=== PATIENT | female | born 1960 | race Caucasian/White ===

== ENCOUNTER 2017-08-13 04:50 | Day surgery (SDC) | payer OTHER ==
[~2017-08-13 04:50] MED LIST: KOMBIGLYZE XR1 EAC2 PO; VASOTEC10 MG PO; ZOCOR5 MG PO
== END 2017-08-13 09:20 | disposition home or self-care (01) ==
LOC: CIR.AMB 04:50 → EDBD 09:00 → CIR.AMB 09:20
DX: L72.0 Epidermal cyst (principal)